=== PATIENT | female | born 1935 | race Caucasian/White ===

== ENCOUNTER 2017-12-13 07:12 | Outpatient (CLI) | payer MEDICARE ==
--- NOTE | 2017-12-13 10:52 | CT ---
CT NECK WITH AND WITHOUT CONTRAST: (PARATHYROID PROTOCOL) Date: 12-13-17 History: 82-year-old female with hyperparathyroidism. Technique: IV contrast: Reduced dose, 70 ml of Isovue 370 for decreased GFR of 48. Precontrast, 25 seconds post contrast, and 65 seconds post contrast, scans performed from mandible to 6 cm inferior to the doris. Sagittal and coronal reconstructions. FINDINGS: Ag the right tracheoesophageal groove at the C7 level, posterior to the lower pole of the right lobe of the thyroid gland, there is a 0.9 x 0.3 x 1.0 cm enhancing nodule, which does not have intrinsic i odine on the noncontrast scan (axial images 55 of 87, series 2; 55 of 87, series 5; 55 of 174, series 3; 57 and 58 of 138, series 604; 83 of 180, series 605). This enhances to a greater degree than lymp h nodes in the neck, and is therefore a good candidate for parathyroid adenoma. The degree of enhance ment is slightly less than typical for parathyroid adenoma, but that is probably due to the reduced I V contrast dose. There are nonspecific multiple bilateral small and tiny thyroid nodules, all less th an 1 cm. IMPRESSION: Small nodule in the right tracheoesophageal groove is a good candidate for parathyroid adenoma. POS: [facility]
[2017-12-13] MEDS ORDERED: Iopamidol 370 76% 100 ML VIAL ONE (11:53)
--- NOTE | 2017-12-13 14:09 | NM ---
NUCLEAR MEDICINE PARATHYROID SCAN: Comparison: CT neck performed earlier today. History: Primary hyperthyroidism. FINDINGS: THIs examination was performed using 25.5 mCi Technetium 99M Sestamibi. Immediate and delayed images were performed. I do not see a definite focal discrete nodule. On the delayed imaging there is still some residual bilateral symmetric thyroid activity. I cannot definitely localized any focal activity to the small lymph nodes seen on the CT examination. IMPRESSION: Unremarkable Nuclear Medicine parathyroid scan done with SPECT imaging. POS: [facility]
== END 2017-12-13 07:13 | disposition home or self-care (01) ==
LOC: CT 07:12
PROVIDERS: ATTEND Otolaryngology Plastic Surgery within the Head & Neck
DX: E21.0 Primary hyperparathyroidism (principal); E83.52 Hypercalcemia; E04.1 Nontoxic single thyroid nodule
CPT/HCPCS: 70492; 78072; 82565; A9500